=== PATIENT | female | born 1975 | race Caucasian/White ===

== ENCOUNTER 2017-08-05 09:29 | Emergency (ER) | payer OTHER ==
[~2017-08-05] VITALS: Ht 154.9 cm; Wt 89.4 kg
[~2017-08-05 09:29] MED LIST: IBUPROFEN800 M1 PO; NAPROSYN500 M1 PO; PROMETHAZINE HC25 M3 PO; ZOFRAN ODT4 M1 SL
--- NOTE | 2017-08-05 11:18 | ED GENERAL ADULT ---
History of Present Illness General Chief Complaint: General Adult Stated Complaint: PT STATES " JUST NOT FEELING GOOD" MULTIPLE COMPL Source: patient Exam Limitations: no limitations Vital Signs & Intake/Output Vital Signs & Intake/Output Vital Signs Date Time Temp Pulse Resp B/P B/P Pulse O2 O2 Flow FiO2 Mean Ox Delivery Rate 08/05 1439 98.9 74 18 103/59 99 Room Air 08/05 1153 98.9 76 18 100/57 100 Room Air 08/05 0934 99.0 85 16 106/74 98 Room Air Allergies Coded Allergies: morphine (Severe, ANAPHALACTIC 01/20/16) Penicillins (Mild, RASH 01/20/16) Reconcile Medications Escitalopram Oxalate 10 MG TABLET 1.5 TAB PO DAILY MENTAL HEALTH (Reported) Triage Note: 42 Y/O FEMALE C/O "NOT FEELING WELL" SINCE THURSDAY NIGHT. REPORTS DECREASED APPETITE/PO INTAKE AND INTERMITTENT HEADACHES. STATES SHE HAS BEEN WEARING A FIT BIT AND HAS NOTICED HER PULSE "IS ALL OVER THE PLACE". ALSO REPORTS CHECKING B/P AT HOME, "ITS BEEN HIGH AND LOW". DENIES FEVERS. DENIES URI SYMPTOMS. AMBULATORY TO RESTROOM TO PROVIDE SAMPLE Triage Nurses Notes Reviewed? yes Onset: Gradual Duration: day(s): Timing: constant : No Patient currently breastfeeds: No HPI: 42 y/o female with h/o anxiety, depression, tension VALDERRAMA's presenting with VALDERRAMA x2 days. Reports a bilateral frontal VALDERRAMA that radiates to the back of her head. Has tried motrin without relief. Endorses feeling light headed, photophobia, nausea, and decreased appetite. Denies head trauma, fevers, visual changes, vomiting. (Grisel Danielle) Past History Travel History Traveled to [place] past 21 day No Medical History Any Pertinent Medical History? 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 No (Grisel Danielle) Review of Systems Review of Systems Constitutional: Reports: no symptoms. EENTM: Reports: no symptoms. Respiratory: Reports: no symptoms. Cardiovascular: Reports: no symptoms. GI: Reports: see HPI. Genitourinary: Reports: no symptoms. Musculoskeletal: Reports: no symptoms. Skin: Reports: no symptoms. Neurological/Psychological: Reports: see HPI. Hematologic/Endocrine: Reports: no symptoms. Immunologic/Allergic: Reports: no symptoms. (Grisel Danielle) Physical Exam Physical Exam General Appearance: well developed/nourished, alert, awake, mild distress Head: atraumatic, normal appearance Eyes: Bilateral: normal appearance, PERRL, EOMI. 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 Skin: intact, normal color, warm/dry Core Measures ACS in differential dx? No CVA/TIA Diagnosis: No Sepsis Present: No Sepsis Focused Exam Completed? No (Grisel Danielle) Progress Differential Diagnoses I considered the following diagnoses in my evaluation of the patient: [migraine vs tension VALDERRAMA vs anxiety induced, low concern ICH vs pseudotumor cerebri vs meningitis vs brain mass] Plan of Care: Orders Procedure Date/time Status URINE 08/05 936 Complete URINALYSIS 08/05 09 Complete Laboratory Tests 08/05/17 0944: Urine Color YEL, Urine Clarity HAZY H, Urine pH 6.0, Ur Specific [place] 1.025, Urine Protein NEG, Urine Ketones NEG, Urine Nitrite NEG, Urine Bilirubin NEG, Urine Urobilinogen 0.2, Ur Leukocyte Esterase NEG, Ur Microscopic SEDIMENT EXAMINED, Urine RBC 1-3, Urine WBC RARE, Ur Epithelial Cells FEW, Urine Bacteria FEW H, Urine Hemoglobin NEG, Urine Glucose NEG, Urine Test NEGATIVE Pt has resolution of all symptoms after IVF, toradol, reglan. Requesting to be discharged home. Counseled on supportive care, rx fioricet. Will f/u with PMD and given strict return precautions. Initial ED EKG: none (Grisel Danielle) Departure Departure Disposition: HOME OR SELF CARE Condition: Stable Clinical Impression Primary Impression: Headache Referrals: Raquel ANGELES,Vidal Rose (PCP/Family) Additional Instructions: Take fioricet as prescribed. Follow up with your primary care provider for re- evaluation. Return to the emergency department for any new or worsening symptoms. Departure Forms: Customer Survey General Discharge Information (Grisel Danielle) PA/DANCE PROFESSOR Co-Sign Statement Statement: ED Attending supervision documentation- [] I saw and evaluated the patient. I have also reviewed all the pertinent lab results and diagnostic results. I agree with the findings and the plan of care as documented in the PA's/DANCE PROFESSOR's documentation. [X] I have reviewed the ED Record and agree with the PA's/DANCE PROFESSOR's documentation. [] Additions or exceptions (if any) to the PAs/DANCE PROFESSOR's note and plan are summarized below: [] (Rose ANGELES,Roberto Gaines) Critical Care Note Critical Care Note Critical Care Time: non-applicable (Grisel Danielle)
[2017-08-05] MEDS ORDERED: ESCITALOPRAM OX10 MG PO (11:31)
[2017-08-05 14:39] VITALS: BP 103/59
== END 2017-08-05 15:37 ==
LOC: ERH 09:29
DX: R51 Headache (principal)
CPT/HCPCS: 81001; 81025; 96374; 96375; J1200; J1885; J2765

== ENCOUNTER 2017-08-08 14:10 | Emergency (ER) | payer OTHER ==
[~2017-08-08] VITALS: Ht 154.9 cm; Wt 89.8 kg
[~2017-08-08 14:10] MED LIST changes: +ESCITALOPRAM OX10 MG PO
[2017-08-08 14:32] VITALS: BP 120/78
== END 2017-08-08 16:10 | disposition admitted as inpatient to this hospital (09) ==
LOC: ERH 14:10
DX: R51 Headache (principal); R42 Dizziness and giddiness; R53.83 Other fatigue; R11.0 Nausea; R19.7 Diarrhea, unspecified; R10.9 Unspecified abdominal pain; M43.6 Torticollis
CPT/HCPCS: 93005; 93010; 99281